=== PATIENT | female | born 1990 | race Caucasian/White ===

== ENCOUNTER 2017-05-16 13:00 | Inpatient (IN) | payer BC ==
--- NOTE | ~2017-05-16 | PA ---
Unit #: [id number] #: [id number] Patient: GRAZYNA PARMAR [id number] [place] [address] [id number] MR#: [id number] NAME: GRAZYNA PARMAR ROOM: P171 Age: 26 Sex: F Admission Date: 05/16/2017 : 1990 Date of Assessment: Attending Physician: Jimi Rosado M.D. Admitting Physician: Jimi Rosado M.D. Primary Care Physician: Jorden Lennon M.D. PSYCHIATRIC ASSESSMENT LOCATION [facility], [facility], room #171, bed #1. DATE OF SERVICE 05/17/2017. INFORMANTS The patient and chart both seem reliable. CHIEF COMPLAINT "I don't need to be here." HISTORY OF PRESENT ILLNESS This is a 26-year-old white female who was brought in by family for evaluation for possible issues with opioid dependency. The patient apparently has been on daily doses of hydrocodone for an abscess in tooth since November. She apparently ran out 4 days ago and was started feeling ill, which was making her underlying depressive symptoms worse. The patient felt overwhelmed yesterday and apparently has some chronic issues with suicidal ideation and it was felt may be needed to be brought in for admission. On interview today, the patient is denying any suicidal ideation. She does admit having them frequently, but has not had any intent or plan to harm herself sides per family, especially her son is reason not to harm herself. The patient seems very immature for her age in terms of maturation process, maturity level repeatedly and make comments during the interview that she want to be home with her mom and tearful during her comments. She admits that she needs to get back into regular therapy. She had been seen by Dr. Buck Ponce for psychiatric care, but recently has switched to a general nurse practitioner, her primary care doctor's office by her family's request for reasons unclear, other than perhaps convenience, but regardless, the patient obviously needs more actual directed in specialized care and this was discussed with her at length. Overall, the patient was denying any active signs of withdrawal, had no tremors, diaphoresis, aches, pains, or anything of that nature. She was reporting good support for the family and would be unsafe hands there. It was felt overall, the patient's necessity to be here was had passed, in which she was in agreement, she could be discharged home to family, follow up to the community resources in her home area. PAST PSYCHIATRIC HISTORY No history of psychiatric admissions. Other issues as noted above. No actual history of self-harm or suicide attempts. No history of illicit drug use. No history of psychosis or HI. Unit #: [id number] #: [id number] Patient: GRAZYNA PARMAR FAMILY HISTORY Noncontributory. SOCIAL HISTORY The patient has a child at home with his father, they apparently have shared custody. She is employed at a bank, has good support through her mother with whom she is living currently. MEDICAL HISTORY Nothing of consequence. MEDICATION HISTORY Include her home doses of Elavil 50 mg at bedtime, Seroquel 25 mg at bedtime, Flexeril 10 mg b.i.d. as needed, Klonopin 1 mg mg 3 times a day for anxiety as needed, Pristiq 100 mg daily for depression and anxiety. No other medications. ALLERGIES No known drug allergies. SUBSTANCE ABUSE HISTORY The patient denies any illicit substance abuse, has been prescribed the hydrocodone appropriately by her outpatient doctors. Denies any illegal use in terms of getting off the street in that nature. Denies any history of actual withdrawal symptoms. It is unclear what the exact symptoms were that she had prior to admission other than simply feeling "sick." The patient seemed to have a difficult time articulating with those actual sick symptoms were, but she denied any illicit drug use. Denied any IV drug use. Denies any regular use of alcohol so on so fort in terms of indulgence. MENTAL STATUS EXAMINATION General appearance; this is a moderately groomed white female, appears stated age, fairly cooperative, responsive in her process, tearful at times, but speech was clear. Mood was dysphoric with a constricted affect. Thought process and content are grossly organized and linear. No overt evidence of psychosis. Denied any active SI or HI. The patient is going to be oriented and able to cite motivational sources. Memory is generally intact. Associations are normal. Cognitive function is at baseline. Alert and oriented x4. Insight and judgment are probably baseline. ASSETS AND LIABILITIES Assets; include supportive family, employed, no illicit drug use. Liabilities; include no current psych provider specifically, no exposure to true CD withdrawal treatment previously. DIAGNOSTIC IMPRESSION Opioid dependency with withdrawal; major depressive disorder, recurrent, moderate; panic disorder without agoraphobia; and chronic pain issues. PSYCHIATRIC PLAN To arrange for discharge today, however, the patient's family as there is no active SI, no active symptoms of detox, and the patient asking for discharge. Treatment goals are obviously resolutions of the symptoms here. Discharge planning to include referral back to her primary care doctors, nurse practitioner with addition of community resources to be Unit #: [id number] #: [id number] Patient: GRAZYNA PARMAR provided to her and her return to her outpatient therapist as soon as possible she has not been active with them in several months, but is well established with them. ESTIMATED LENGTH OF STAY 2 days. Dictated by... Jimi Rosado M.D. JUDY/ketty TD: 05/17/2017 17:50 JOB #: [id number] PSYCHIATRIC ASSESSMENT Page 1 of 1 X Jimi Rosado MD X PSYCHIATRIC ASSESSMENT
--- NOTE | ~2017-05-16 | DS ---
Unit #: [id number] #: [id number] Patient: GRAZYNA PARMAR [id number] [facility] [address] [place] [address] [id number] I MR#: [id number] NAME: GRAZYNA PARMAR ROOM: [facility] Age: 26 Sex: F Admission Date: 05/16/2017 : 1990 Discharge Date: 05/17/2017 Attending Physician: Jimi Rosado M.D. Primary Care Physician: Jorden Lennon M.D. DISCHARGE SUMMARY REASON FOR ADMISSION Opiate dependency and depression. DIAGNOSTIC STUDIES PERTINENT LABORATORY DATA: The patient had routine blood work which included a CMP that was within acceptable parameters with the exception of alkaline phosphatase slightly elevated at 96 but that would be in keeping with opiate use. Beta HCG was negative. CBC was well within acceptable parameters. RPR was nonreactive. HOSPITAL COURSE The patient was briefly admitted for issues with opiate dependency had it been provided to her from her outpatient primary care doctors for an abscess tooth worse over the last few months; she apparently had run out four days previously and was starting feel "sick" that was making her underlying depressive symptoms worse and she was brought to the hospital by family for evaluation and admission. Shortly after admission the patient quickly became concern about being here. She did not like the place. She seemed to have a certain level of maturity issue, very tearful wanting to be home with her mother denied any suicidal ideation or homicidal ideation and was able to focus in that regard. She does admit to issues with depression but she also has not been compliant with actual care in terms of therapy or seeing a qualified provider. She had been having her medications maintained by a nurse practitioner and her primary care doctors but not an actual specialist that she had in the past with Dr. Buck Caicedo. It was discussed with the patient at length about the need for her to return to actual specialized care given her ongoing issues with depression and now comorbid substance dependency. Overall the patient was in agreeable with plan and was able to cite reasons for not wanting to harm herself including her family and her son especially. The patient is gainfully employed and has a good support network in place. It was felt that overall patient's request to be discharged was reasonable. She had been maintained on her home psych medications without change and it seems that more likely her comorbid substance abuse (1) with withdrawal had been agitating her mood. The patient was not suicidal. She was future and goal oriented. There was no further need for the patient to be maintained from an involuntary standpoint at fears it would only escalate the situation and make it worse. The patient had been fully cooperated with all aspects of care per staff and report. DISCHARGE DIAGNOSES 1. Opioid dependency with withdrawal. Unit #: [id number] #: [id number] Patient: GRAZYNA PARMAR 2. Major depressive disorder recurrent moderate. 3. Panic disorder without agoraphobia. 4. Chronic pain issues. DISCHARGE INSTRUCTIONS Plan for the patient to go home with family. Followup with community resources and her therapist in her home area as soon as possible as well as with her nurse practitioner until more appropriate specialized care can be arranged. DISCHARGE MEDICATIONS Include her home doses of Pristiq 100 mg daily by mouth for anxiety and depression, Klonopin 1 mg three times a day as needed for breakthrough anxiety, Flexeril 10 mg twice a day for chronic pain issues, Seroquel 25 mg at bedtime for sleep and mood, amitriptyline 50 mg at bedtime for sleep and mood. CONDITION AT DISCHARGE Somewhat improved. PROGNOSIS Moderate given the patient's resistance to treatment here. DIET AND ACTIVITY Diet is regular. Activity is tolerated with compliance encouraged. Dictated by... Jimi Rosado M.D. JUDY/nika TD: 05/18/2017 02:59 JOB #: [id number] DISCHARGE SUMMARY Page 1 of 1 X Jimi Rosado MD X DISCHARGE SUMMARY
--- NOTE | ~2017-05-16 | HP ---
Unit #: [id number] #: [id number] Patient: GRAZYNA PARMAR [id number] [place] [address] [id number] I MR#: [id number] NAME: GRAZYNA PARMAR ROOM: [facility] Age: 26 Sex: F Admission Date: 05/16/2017 : 1990 Attending Physician: Jimi Rosado M.D. Admitting Physician: Jimi Rosado M.D. Primary Care Physician: Jorden Lennon M.D. HISTORY AND PHYSICAL HISTORY OF PRESENT ILLNESS Grazyna is a 26 year old admitted to [facility] because of his drug use. She abuses hydrocodone. PAST MEDICAL HISTORY History of opioid abuse. PAST SURGICAL HISTORY 1. 2. Pelvic lap ALLERGIES No known drug allergies. SOCIAL HISTORY Smokes one-half pack per day. Drinks alcohol socially. Admits to abusing opioids. FAMILY HISTORY Medically noncontributory. REVIEW OF SYSTEMS CONSTITUTIONAL: No fever or chills. HEENT: Denies any sore throat, ear pain or runny nose. CARDIOVASCULAR: Denies chest pain, irregular heart rhythm or palpitations. CHEST: Denies shortness of breath or cough. No hemoptysis. GASTROINTESTINAL: Denies nausea, vomiting, diarrhea or chronic constipation. ENDOCRINE: Denies history of increased thirst or urination. No recent significant weight loss or gain. GENITOURINARY: Denies dysuria, frequency, or hematuria. SKIN: Denies any rashes. HEMATOLOGIC: Denies history of increased bleeding or bruising. MUSCULOSKELETAL: Denies any hot, swollen joints. No generalized muscle pain. NEUROLOGIC: Denies problems with vision or speech. No frequent, severe headaches. No numbness, tingling or weakness in any extremities. Denies loss of bladder or bowel control. CURRENT MEDICATIONS 1. Detox protocol 2. Amitriptyline 50 mg q.h.s. Unit #: [id number] #: [id number] Patient: GRAZYNA PARMAR 3. Seroquel 25 mg q.h.s. 4. Pristiq 100 mg q day 5. Flexeril p.r.n. PHYSICAL EXAMINATION GENERAL: Alert, well-nourished, in no apparent distress. VITAL SIGNS: Blood pressure 106/74, heart rate 100, respirations 16, temperature 98.6. WEIGHT: 130 pounds. HEIGHT: 5'2". SKIN: Warm and dry without rash or lesion. HEENT: Normocephalic. TMs not viewed. Oral and nasal passages clear. Conjunctivae clear. Pupils equal, round and reactive to light and accommodation. Extraocular movements intact. NECK: Supple without lymphadenopathy or thyromegaly. HEART: Regular rate and rhythm without murmur. LUNGS: Clear. ABDOMEN: Soft, nontender. : Not done. EXTREMITIES: No evidence of cyanosis, clubbing or edema. Moves all extremities without focal deficit. NEUROLOGICAL: Grossly within normal limits. Cranial Nerves: II: Visual west are intact. III, IV AND : Extraocular movements are intact. Pupils are equal, round and reactive to light. V: Facial sensation is grossly normal. VII: Facial movements and expression are normal. VIII: Auditory acuity grossly intact. IX, X: Uvula is midline. Phonation is normal. XI: Patient shrugs shoulders and turns head normally. XII: Tongue protrudes in the midline. Sensory and Motor Function: Sensory and motor sensation is grossly normal. Motor: moves all extremities well. Coordination: Gait is normal. Deep Tendon Reflexes: Intact. IMPRESSION Psychiatric admission RECOMMENDATIONS PSYCHIATRIC: Per psychiatrist. MEDICAL: I see no contraindications to participating in facility's activities. MEDICAL PROGNOSIS Good. MEDICAL CONDITION Stable. Dictated by... Chasidy Phillips P.A.-C. for Anthony Dooley/nika Unit #: [id number] #: [id number] Patient: GRAZYNA PARMAR TD: 05/18/2017 06:09 JOB #: [id number] HISTORY AND PHYSICAL Page 1 of 1 X Chasidy hPillips HISTORY AND PHYSICAL
[2017-05-17 09:40] LABS: BASOPHIL% 0.4 % (0-2.5); EOSINOPHIL# 0.1 X10e3 (0-0.7); EOSINOPHIL% 0.7 % (0.0-7.0); HEMATOCRIT 41.4 % (35.0-45.0); HEMOGLOBIN 13.7 gm/dL (12.0-16.0); LYMPHOCYTE# 2.1 X10e3 (1.0-3.5); LYMPHOCYTE% 25.9 % (17.0-45.0); MEAN CELL VOLUME 93.8 FL (83-96); MEAN CORPUSCULAR HGB CONC 33.1 g/dL (30-36); MONOCYTE# 0.6 X10e3 (0-1.0); MONOCYTE% 7.6 % (3.0-12.0); NEUTROPHIL# 5.4 X10e3 (1.5-7.1); NEUTROPHIL% 65.4 % (40-75); PLATELET COUNT 266 X10e3 (140-420); RED BLOOD COUNT 4.41 X10e (3.90-5.30); RED CELL DISTRIBUTION WIDTH 13.7 % (11.0-15.5); WHITE BLOOD COUNT 8.2 X10e3 (4.0-10.5)
[2017-05-17 09:48] LABS: DIFF IND NO
[2017-05-17 09:56] LABS: BILIRUBIN,TOTAL 0.3 mg/dL (0.2-2.0); BUN/CREATININE RATIO 36.66; CALCIUM SERUM 9.4 mg/dL (8.4-10.2); CREATININE SERUM 0.3 mg/dL (0.6-1.4); GLOM FILT RATE Estimated 159.2 mL/min (>60); POTASSIUM 4.4 mmol/L (3.5-5.1)
== END 2017-05-17 13:45 | disposition home or self-care (01) | DRG 897 ==
LOC: P1E 15:16
PROVIDERS: Psychiatry & Neurology Psychiatry
PROC: HZ2ZZZZ Detoxification Services for Substance Abuse Treatment (ICD-10-PCS; principal; 2017-05-16)
DX: F11.23 Opioid dependence with withdrawal (principal); F33.1 Major depressive disorder, recurrent, moderate; F41.0 Panic disorder [episodic paroxysmal anxiety]; G89.29 Other chronic pain; F17.210 Nicotine dependence, cigarettes, uncomplicated
CPT/HCPCS: 80053; 84703; 85025; 86592